=== PATIENT | male | born 1985 | race Caucasian/White ===

== ENCOUNTER 2018-01-14 09:19 | Emergency (ER) | payer MEDICAID, OTHER ==
[~2018-01-14] VITALS: Ht 170.2 cm; Wt 78.9 kg
[~2018-01-14 09:19] MED LIST: CYCL-36 PO; DICL75 PO; HYDR-3533 PO; PERC5TAB12 PO; ROBA750T3 PO
[2018-01-14 09:27] VITALS: BP 201/96; PULSE 121; RESP 18; TEMP 98.9; O2SAT 99
--- NOTE | 2018-01-14 09:58 | RADRPT ---
EXAM DATE/TIME: 01/14/2018 09:40 [place] COMPARISON: No previous studies available for comparison. INDICATIONS : Fall, right posterior rib pain. MEDICAL HISTORY : None. SURGICAL HISTORY : None. ENCOUNTER: Initial ACUITY: 4 - 6 days PAIN SCORE: 5/10 LOCATION: Right posterior ribs FINDINGS: Multiple views of the right ribs were performed. There is no evidence of displaced fracture. Possib le old fracture deformity in the mid anterior aspect of the left sixth rib. No destructive lesions or areas of periosteal thickening are seen. Expiratory view of the chest is negative for pneumothorax. The mediastinal structures are midline. CONCLUSION: 1. Possible old fracture deformity in the mid anterior aspect of the left sixth rib. 2. No acute osseous injury. Lungs are clear. No pneumothorax. Andrés Mann MD on January 14, 2018 at 9:54 Board Certified Radiologist. This report was verified electronically.
[2018-01-14] MEDS ORDERED: NAPR-810 PO (10:08)
--- NOTE | 2018-01-14 10:08 | PD ---
HPI Chief Complaint: Injury Time Seen by Provider: 09:35 Travel History International Travel<30 days: No Contact w/Intl Traveler<30days: No Traveled to known affect area: No History of Present Illness HPI This is a 32-year-old male presented here for evaluation of right-sided pain after falling. Patient states that he slipped and fell on the top and has right -sided rib cage pain since the incident. Pain is rated at 3 out of 10, nothing makes it better but moving makes it worse. Patient has no shortness of breath or chest pain. No systemic symptoms, no fever or chills or night sweats. PFSH Past Medical History Diminished Hearing: No Musculoskeletal: Yes (Chronic low back pain ) Tetanus Vaccination: < 5 Years Influenza Vaccination: No Past Surgical History Other Surgery: Yes (Jaw) Social History Alcohol Use: Yes ("At least a couple" mixed drinks daily) Tobacco Use: Yes (1.5-2 PPD) Substance Use: No Allergies-Medications (Allergen,Severity, Reaction): Coded Allergies: No Known Allergies (Unverified Adverse Reaction, Unknown, 01/14/18) Reported Meds & Prescriptions Reported Meds & Active Scripts Active No Active Prescriptions or Reported Medications Review of Systems Except as stated in HPI: all other systems reviewed are Neg Physical Exam Narrative GENERAL: Well-nourished, well-developed patient. SKIN: Focused skin assessment warm/dry. HEAD: Normocephalic. EYES: No scleral icterus. No injection or drainage. NECK: Supple, trachea midline. No JVD or lymphadenopathy. CARDIOVASCULAR: Regular rate and rhythm without murmurs, gallops, or rubs. RESPIRATORY: Breath sounds equal bilaterally. No accessory muscle use. GASTROINTESTINAL: Abdomen soft, non-tender, nondistended. MUSCULOSKELETAL: Tenderness on palpation of the right rib cage, no bruises, no skin lesions or open wounds. No cyanosis, or edema. BACK: Nontender without obvious deformity. No CVA tenderness. Data Data Last Documented VS Vital Signs Date Time Temp Pulse Resp B/P (MAP) Pulse Ox O2 Delivery O2 Flow Rate FiO2 01/14/18 09:27 98.9 121 18 201/96 (131) 99 Orders Orders Ribs, Uni (W/Exp Cxr-Min 3vw) (01/14/18 ) Ed Discharge Order (01/14/18 10:01) MDM Medical Decision Making Medical Screen Exam Complete: Yes Emergency Medical Condition: Yes Differential Diagnosis Rib fracture, pulmonary contusion, dislocation, soft tissue swelling, costochondritis. Narrative Course This is a 32-year-old male presented the ER for evaluation of rib cage pain after falling. Patient has tenderness to palpation over the right rib cage, bilateral breath sounds equally chest x-ray shows no fracture or any new abnormalities. I discussed with the patient that sometimes is a pulmonary contusion does not show an x-ray and if he continues to have symptoms of have to come to the ER for further evaluation meanwhile give the patient a course of anti-inflammatories and advised him to follow-up with his primary care physician within [id number] hours. Diagnosis Primary Impression: Rib contusion Qualified Codes: S20.211A - Contusion of right front wall of thorax, initial encounter Additional Impression: Fall Qualified Codes: W19.XXXA - Unspecified fall, initial encounter Patient Instructions: General Instructions Departure Forms: Tests/Procedures Additional Instructions: Follow-up with primary care physician in [place] if symptoms change or do not improve. Scripts Naproxen DR (EC-Naprosyn) 500 Mg Tabdr 500 MG PO BID, #20 TAB 0 Refills Prov: Wilman Cerda MD 01/14/18 Disposition: 01 DISCHARGE HOME Condition: Stable Wilman Cerda MD January 14, 2018 10:08
== END 2018-01-14 10:25 | disposition home or self-care (01) ==
LOC: PHED 09:19
DX: S20.211A Contusion of right front wall of thorax, initial encounter (principal); F17.200 Nicotine dependence, unspecified, uncomplicated; Z87.39 Personal history of other diseases of the musculoskeletal system and connective tissue; W01.0XXA Fall on same level from slipping, tripping and stumbling without subsequent striking against object, initial encounter
CPT/HCPCS: 71101; 99283